=== PATIENT | female | born 2000 | race Two or more races ===

== ENCOUNTER 2019-04-07 08:23 | Emergency (ER) | payer BC ==
[~2019-04-07] VITALS: Ht 152.4 cm; Wt 43.1 kg
--- NOTE | 2019-04-07 08:35 | PHYS DOC ---
Past Medical History Past Medical History: Depression (MYLES CHAPMAN MD) Drug Use: None (MYLES CHAPMAN MD) Adult General HPI HPI Patient is a 19-year-old female who presents to the emergency department for evaluation. She states she has struggled with depression for a long time, she states that this morning at about 7:00, she took 10-15 either oxycodone or hydrocodone tablets, she is uncertain whose they were, either hers or her boyfriend, as they were in the medicine cabinet. She is tearful, and states she did this as a suicide attempt. She states that "well I do not want to , I do not want to be here either". She states she took a similar overdose about a week ago, and her boyfriend made her stay awake and drink some milk afterwards, causing her to vomit up what she had ingested, and she states that she established an appointment with a mental health facility, [facility], and get back on her bipolar medications. She denies any other coingestants at this time. There are no alleviating or exacerbating factors to her symptoms otherwise. (MYLES CHAPMAN MD) Review of Systems Review of Systems Constitutional: Denies fever or chills [] Eyes: Denies change in visual acuity, redness, or eye pain [] HENT: Denies nasal congestion or sore throat [] Respiratory: Denies cough or shortness of breath [] Cardiovascular: The patient denies any shortness of breath, chest pain, palpitations, or orthopnea [] GI: Denies abdominal pain, nausea, vomiting, bloody stools or diarrhea [] : Denies dysuria or hematuria [] Musculoskeletal: Denies back pain or joint pain [] Integument: Denies rash or skin lesions [] Neurologic: Denies headache, focal weakness or sensory changes [] Endocrine: Denies polyuria or polydipsia [] All other systems were reviewed and found to be within normal limits, except as documented in this note. (MYLES CHAPMAN MD) Current Medications Current Medications Current Medications Medications (Trade) Dose Ordered Sig/Marlys Start Time Stop Time Status Last Admin Dose Admin Ondansetron HCl (Zofran) 4 mg 1X ONCE 04/07/19 14:15 04/07/19 14:16 DC (BOSSMAN MIRANDA MD) Allergies Allergies Allergies Coded Allergies Type Severity Reaction Last Updated Verified No Known Drug Allergies 04/07/19 No (BOSSMAN MIRANDA MD) Physical Exam Physical Exam PHYSICAL EXAM: CONSTITUTIONAL: Well developed, well nourished HEAD: normocephalic, atraumatic EENT: PERRL, EOMI. pupils are 3 mm bilaterally. Conjunctivae normal color, sclerae non-icteric; moist mucous membranes. NECK: Supple, non-tender; no meningismus. LUNGS: Lungs CTA, breathing even and unlabored. Normal air movement. HEART: Regular rate and rhythm, no murmur CHEST: No deformity; non-tender ABDOMEN: The abdomen is soft, and non-tender, no masses or bruits. EXTREM: Normal ROM; no deformity, no calf tenderness. Normal pulses palpable in all extremities. There is no pedal edema. SKIN: No rash; no diaphoresis NEURO: Alert; normal speech and cognition; CN's grossly intact; strength grossly intact without focal deficit. BACK: No CVA TTP. PSYCHIATRIC: The patient is tearful, exhibits a depressed affect. Admits to a suicide attempt this morning. (MYLES CHAPMAN MD) Current Patient Data Vital Signs Vital Signs Date Time Temp Pulse Resp B/P (MAP) Pulse Ox O2 Delivery O2 Flow Rate FiO2 04/07/19 21:59 77 37 102/62 (75) 95 Room Air 04/07/19 08:25 98.6 98.6 (BOSSMAN MIRANDA MD) Lab Values Laboratory Tests Test 04/07/19 08:53 04/07/19 09:06 04/07/19 09:14 04/07/19 11:15 White Blood Count 8.0 x10^3/uL (4.0-11.0) Red Blood Count 4.56 x10^6/uL (3.50-5.40) Hemoglobin 15.0 g/dL (12.0-15.5) Hematocrit 43.8 % (36.0-47.0) Mean Corpuscular Volume 96 fL (79-100) Mean Corpuscular Hemoglobin 33 pg (25-35) Mean Corpuscular Hemoglobin Concent 34 g/dL (31-37) Red Cell Distribution Width 13.1 % (11.5-14.5) Platelet Count 220 x10^3/uL (140-400) Neutrophils (%) (Auto) 71 % (31-73) Lymphocytes (%) (Auto) 24 % (24-48) Monocytes (%) (Auto) 4 % (0-9) Eosinophils (%) (Auto) 0 % (0-3) Basophils (%) (Auto) 0 % (0-3) Neutrophils # (Auto) 5.7 x10^3/uL (1.8-7.7) Lymphocytes # (Auto) 1.9 x10^3/uL (1.0-4.8) Monocytes # (Auto) 0.3 x10^3/uL (0.0-1.1) Eosinophils # (Auto) 0.0 x10^3/uL (0.0-0.7) Basophils # (Auto) 0.0 x10^3/uL (0.0-0.2) Sodium Level 139 mmol/L (136-145) Potassium Level 4.2 mmol/L (3.5-5.1) Chloride Level 104 mmol/L (98-107) Carbon Dioxide Level 23 mmol/L (21-32) Anion Gap 12 (6-14) Blood Urea Nitrogen 10 mg/dL (7-20) Creatinine 0.6 mg/dL (0.6-1.0) Estimated GFR (Cockcroft-Gault) 127.5 BUN/Creatinine Ratio 17 (6-20) Glucose Level 125 mg/dL (70-99) H Calcium Level 9.6 mg/dL (8.5-10.1) Total Bilirubin 0.7 mg/dL (0.2-1.0) Aspartate Amino Transferase (AST) 40 U/L (15-37) H Alanine Aminotransferase (ALT) 53 U/L (14-59) Alkaline Phosphatase 60 U/L (46-116) Total Protein 8.0 g/dL (6.4-8.2) Albumin 4.6 g/dL (3.4-5.0) Albumin/Globulin Ratio 1.4 (1.0-1.7) Thyroid Stimulating Hormone (TSH) 4.718 uIU/mL (0.358-3.74) H Free Thyroxine 1.14 ng/dL (0.76-1.46) Salicylates Level < 2.8 mg/dL (2.8-20.0) L Salicylate Last Dose Date Unknown Salicylate Last Dose Time Unknown Acetaminophen Level 69.30 mcg/ml (10-30) H 51.11 mcg/ml (10-30) H Acetaminophen Last Dose Date Unknown Unknown Acetaminophen Last Dose Time Unknown Unknown Ethyl Alcohol Level < 10 mg/dL (0-10) Urine Collection Type Unknown Urine Color Yellow Urine Clarity Clear Urine pH 6.5 Urine Specific [place] 1.015 Urine Protein Negative mg/dL (NEG-TRACE) Urine Glucose (UA) Negative mg/dL (NEG) Urine Ketones (Stick) Negative mg/dL (NEG) Urine Blood Negative (NEG) Urine Nitrite Negative (NEG) Urine Bilirubin Negative (NEG) Urine Urobilinogen Dipstick 0.2 mg/dL (0.2 mg/dL) Urine Leukocyte Esterase Negative (NEG) Urine RBC 0 /HPF (0-2) Urine WBC 1-4 /HPF (0-4) Urine Squamous Epithelial Cells Mod /LPF Urine Bacteria Few /HPF (0-FEW) Urine Mucus Slight /LPF Urine Opiates Screen Pos (NEG) Urine Methadone Screen Neg (NEG) Urine Barbiturates Neg (NEG) Urine Phencyclidine Screen Neg (NEG) Urine Amphetamine/Methamphetamine Neg (NEG) Urine Benzodiazepines Screen Neg (NEG) Urine Cocaine Screen Neg (NEG) Urine Cannabinoids Screen Pos (NEG) Urine Ethyl Alcohol Neg (NEG) POC Urine HCG, Qualitative Hcg negative (Negative) Laboratory Tests 04/07/19 08:53 Laboratory Tests 04/07/19 08:53 (BOSSMAN MIRANDA MD) Lab Values Laboratory Tests Test 04/07/19 08:53 04/07/19 09:06 04/07/19 09:14 04/07/19 11:15 White Blood Count 8.0 x10^3/uL (4.0-11.0) Red Blood Count 4.56 x10^6/uL (3.50-5.40) Hemoglobin 15.0 g/dL (12.0-15.5) Hematocrit 43.8 % (36.0-47.0) Mean Corpuscular Volume 96 fL (79-100) Mean Corpuscular Hemoglobin 33 pg (25-35) Mean Corpuscular Hemoglobin Concent 34 g/dL (31-37) Red Cell Distribution Width 13.1 % (11.5-14.5) Platelet Count 220 x10^3/uL (140-400) Neutrophils (%) (Auto) 71 % (31-73) Lymphocytes (%) (Auto) 24 % (24-48) Monocytes (%) (Auto) 4 % (0-9) Eosinophils (%) (Auto) 0 % (0-3) Basophils (%) (Auto) 0 % (0-3) Neutrophils # (Auto) 5.7 x10^3/uL (1.8-7.7) Lymphocytes # (Auto) 1.9 x10^3/uL (1.0-4.8) Monocytes # (Auto) 0.3 x10^3/uL (0.0-1.1) Eosinophils # (Auto) 0.0 x10^3/uL (0.0-0.7) Basophils # (Auto) 0.0 x10^3/uL (0.0-0.2) Sodium Level 139 mmol/L (136-145) Potassium Level 4.2 mmol/L (3.5-5.1) Chloride Level 104 mmol/L (98-107) Carbon Dioxide Level 23 mmol/L (21-32) Anion Gap 12 (6-14) Blood Urea Nitrogen 10 mg/dL (7-20) Creatinine 0.6 mg/dL (0.6-1.0) Estimated GFR (Cockcroft-Gault) 127.5 BUN/Creatinine Ratio 17 (6-20) Glucose Level 125 mg/dL (70-99) H Calcium Level 9.6 mg/dL (8.5-10.1) Total Bilirubin 0.7 mg/dL (0.2-1.0) Aspartate Amino Transferase (AST) 40 U/L (15-37) H Alanine Aminotransferase (ALT) 53 U/L (14-59) Alkaline Phosphatase 60 U/L (46-116) Total Protein 8.0 g/dL (6.4-8.2) Albumin 4.6 g/dL (3.4-5.0) Albumin/Globulin Ratio 1.4 (1.0-1.7) Thyroid Stimulating Hormone (TSH) 4.718 uIU/mL (0.358-3.74) H Free Thyroxine 1.14 ng/dL (0.76-1.46) Salicylates Level < 2.8 mg/dL (2.8-20.0) L Salicylate Last Dose Date Unknown Salicylate Last Dose Time Unknown Acetaminophen Level 69.30 mcg/ml (10-30) H 51.11 mcg/ml (10-30) H Acetaminophen Last Dose Date Unknown Unknown Acetaminophen Last Dose Time Unknown Unknown Ethyl Alcohol Level < 10 mg/dL (0-10) Urine Collection Type Unknown Urine Color Yellow Urine Clarity Clear Urine pH 6.5 Urine Specific [place] 1.015 Urine Protein Negative mg/dL (NEG-TRACE) Urine Glucose (UA) Negative mg/dL (NEG) Urine Ketones (Stick) Negative mg/dL (NEG) Urine Blood Negative (NEG) Urine Nitrite Negative (NEG) Urine Bilirubin Negative (NEG) Urine Urobilinogen Dipstick 0.2 mg/dL (0.2 mg/dL) Urine Leukocyte Esterase Negative (NEG) Urine RBC 0 /HPF (0-2) Urine WBC 1-4 /HPF (0-4) Urine Squamous Epithelial Cells Mod /LPF Urine Bacteria Few /HPF (0-FEW) Urine Mucus Slight /LPF Urine Opiates Screen Pos (NEG) Urine Methadone Screen Neg (NEG) Urine Barbiturates Neg (NEG) Urine Phencyclidine Screen Neg (NEG) Urine Amphetamine/Methamphetamine Neg (NEG) Urine Benzodiazepines Screen Neg (NEG) Urine Cocaine Screen Neg (NEG) Urine Cannabinoids Screen Pos (NEG) Urine Ethyl Alcohol Neg (NEG) POC Urine HCG, Qualitative Hcg negative (Negative) Laboratory Tests 04/07/19 08:53 Laboratory Tests 04/07/19 08:53 (MYLES CHAPMAN MD) EKG EKG []Normal sinus rhythm with a normal rate, normal axis, normal intervals, there are no acute ischemic ST/T changes. (MYLES CHAPMAN MD) Radiology/Procedures Radiology/Procedures [] (MYLES CHAPMAN MD) Course & Med Decision Making Course & Med Decision Making Pertinent Lab studies reviewed. (See chart for details) []12:30 PM: Repeat Tylenol level has decreased, both levels are subtoxic. I spoke with the PAT fluid dynamicist, who will come see the patient. 2:00 PM: The patient's condition remains stable, and she is medically clear at this time for psychiatric admission and hospitalization. 3:10 PM: Patient was seen by the PAT counselor, we both agree the patient needs hospitalization, something she is voluntarily agreeable to at this time. Should she desire not to be hospitalized, I do believe she is at high risk for suicide, and will need to be hospitalized involuntarily. 6:00 PM: The patient's condition remains stable. [facility] to see if appropriate for their facility. Care turned over to Dr Miranda at shift change. Report given. (MYLES CHAPMAN MD) Course & Med Decision Making s/o from [facility] at 6 pm, pt medically clear awaiting placemetn. 10 pm pt calm cooperative. accepted to [facility] dr esdras wilson for transfer at 2230 (BOSSMAN MIRANDA MD) Dragon Disclaimer Dragon Disclaimer This electronic medical record was generated, in whole or in part, using a voice recognition dictation system. (MYLES CHAPMAN MD) Departure Departure Impression: Primary Impression: Suicide attempt Additional Impression: Depression Disposition: 65 XFER TO PSYCH HOSP/UNIT Condition: STABLE Problem Qualifiers MYLES CHAPMAN MD Apr 07, 2019 08:35 BOSSMAN MIRANDA MD Apr 07, 2019 22:28
[2019-04-07 09:02] LABS: BASO % 0 % (0-3); EOS % 0 % (0-3); HEMATOCRIT 43.8 % (36.0-47.0); LYMPH # 1.9 x10^3/uL (1.0-4.8); LYMPH % 24 % (24-48); MEAN CORPUSCULAR HEMOGLOBIN 33 pg (25-35); MEAN CORPUSCULAR HGB CONC 34 g/dL (31-37); MEAN CORPUSCULAR VOLUME 96 fL (79-100); MONO # 0.3 x10^3/uL (0.0-1.1); MONO % 4 % (0-9); NEUT # 5.7 x10^3/uL (1.8-7.7); NEUT % 71 % (31-73); PLATELET COUNT 220 x10^3/uL (140-400); RED BLOOD COUNT 4.56 x10^6/uL (3.50-5.40); RED CELL DISTRIBUTION WIDTH 13.1 % (11.5-14.5)
[2019-04-07 09:20] LABS: CALCIUM 9.6 mg/dL (8.5-10.1); CREATININE 0.6 mg/dL (0.6-1.0); GFR 127.5; POTASSIUM 4.2 mmol/L (3.5-5.1)
[2019-04-07 09:24] LABS: ETHANOL < 10 mg/dL (0-10); SALIC < 2.8 mg/dL (2.8-20.0)
[2019-04-07 09:26] LABS: ALBUMIN 4.6 g/dL (3.4-5.0); ALBUMIN/GLOBULIN RATIO 1.4 (1.0-1.7); TOTAL BILIRUBIN 0.7 mg/dL (0.2-1.0)
[2019-04-07 09:28] LABS: FREE T4 1.14 ng/dL (0.76-1.46); THYROID STIM HORMONE (TSH) 4.718 uIU/mL (0.358-3.74)
[2019-04-07 09:32] LABS: BILIRUBIN,URINE NEGATIVE (NEG); CLARITY,URINE CLEAR; COLOR,URINE YELLOW; NITRITE,URINE NEGATIVE (NEG); PH,URINE 6.5; PROTEIN,URINE NEGATIVE (NEG-TRACE); UROBILINOGEN,URINE 0.2 mg/dL (0.2 mg/dL)
[2019-04-07 09:42] LABS: AMPHETAMINE/METHAMPHETAMINE NEG (NEG); BARBITURATES NEG (NEG); BENZODIAZEPINES NEG (NEG); CANNABINOIDS POS (NEG); COCAINE NEG (NEG); METHADONE NEG (NEG); OPIATES POS (NEG); PHENCYCLIDINE NEG (NEG)
[2019-04-07 09:49] LABS: BACTERIA,URINE FEW /HPF (0-FEW); RBC,URINE 0 /HPF (0-2); SQUAMOUS EPITHELIAL CELL,UR MOD /LPF
[2019-04-07 11:57] LABS: ACETAMIN 51.11 mcg/ml (10-30)
[2019-04-07] MEDS ORDERED: ONDANSETRON PF 4 MG/2 ML VIAL. IV ONE ×2 (14:15)
--- NOTE | 2019-04-07 15:29 | EKG ---
[facility] [address] [place] [address] Test Date: 2019-04-07 Test Time: 08:59:08 Pat Name: KATHARINA LOEAR Department: Room: Gender: F Crm Developer: : 2000 Requested By: MYLES CHAPMAN Order Number: [id number] Reading MD: Measurements Intervals Phil Campbell Rate: 96 P: 41 MI: 130 QRS: 44 QRSD: 64 T: 39 QT: 312 QTc: 400 Interpretive Statements SINUS RHYTHM NORMAL ECG No previous ECG available for comparison
[2019-04-08 02:55] VITALS: BP 95/60
== END 2019-04-08 03:30 ==
LOC: ER 08:23
DX: T14.91XA Suicide attempt, initial encounter (principal); F32.9 Major depressive disorder, single episode, unspecified; R11.10 Vomiting, unspecified
CPT/HCPCS: 36415; 80053; 80307; 80329; 81001; 81025; 84439; 84443; 85025; 93005; 96374; 99285; G0480; J2405